=== PATIENT | female | born 1955 | race Caucasian/White ===

== ENCOUNTER 2016-09-02 20:40 | Emergency (ER) | payer OTHER ==
[~2016-09-02] VITALS: Ht 157.5 cm; Wt 72.3 kg
[~2016-09-02 20:40] MED LIST: HYSSR375
[2016-09-02 20:42] VITALS: TEMP 36.8; Ht 157.5 cm; Wt 72.3 kg
--- NOTE | 2016-09-02 21:37 | DIAGNOSTIC IMAGING REPORT ---
CHEST 2 VIEWS ROUTINE CLINICAL HISTORY: eval for pnea chest pain. Dyspnea. COMPARISON STUDY: No previous studies for comparison. FINDINGS: The bones soft tissues and hemidiaphragms are normal. The cardiomediastinal silhouette is normal. The lungs are clear. The pulmonary vasculature is normal. IMPRESSION: Negative chest. Electronically signed by: Hal Wolf M.D. 09/02/2016 9:35 PM Dictated Date/Time: 09/02/2016 9:35 PM
[2016-09-02 21:50] VITALS: BP 121/81; PULSE 61; O2SAT 100
--- NOTE | 2016-09-02 22:10 | EMERGENCY ROOM VISIT NOTE ---
History Report prepared by Nayeli: Babs Byrd Under the Supervision of: Dr. Jose Francisco Ruiz M.D. First contact with patient: 20:55 Chief Complaint: ILLNESS Stated Complaint: BODY ACHES, COUGH, SORETHROAT, STUFFED NOSE History of Present Illness The patient is a 60 year old female who presents to the Emergency Room with complaints of persistent flu-like symptoms that began 3 days ago. She notes that she has had body aches, a sore throat, nonproductive cough, and swollen glands. Her sore throat is worse with coughing. 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 She does not think she has had a fever. Denies chest pain, shortness of breath, or other complaints. Source of History: patient Onset: 3 days ago Position: other (global) Quality: other (flu-like symptoms) Timing: other (persistent) Associated Symptoms: + cough (nonproductive), + lymphadenopathy, + sorethroat, No SOB, No chest pain Note: Other symptoms: body aches Review of Systems See HPI for pertinent positives & negatives. A total of 10 systems reviewed and were otherwise negative. Past Medical & Surgical Medical Problems: (1) No Known Active Medical Problems Family History Diabetes mellitus Heart disease Hypertension Social History Smoking Status: Current Every Day Smoker Alcohol Use: occasionally Marital Status: Housing Status: lives with significant other Occupation Status: employed Current/Historical Medications Miscellaneous Medications Hyoscyamine Sulfate (Levbid *) Allergies Coded Allergies: Penicillins (Verified Allergy, Unknown, 09/09/09) Physical Exam Vital Signs Date Time Temp Pulse Resp B/P Pulse Ox O2 Delivery O2 Flow Rate FiO2 09/02/16 20:42 36.8 59 18 126/80 98 Room Air Physical Exam Constitutional: Vital signs reviewed. Eyes: Pupils are equal round reactive to light. Conjunctiva are noninjected. ENT: Pharynx is clear without erythema or exudate. Mucous membranes are moist. Neck supple without meningeal signs. Respiratory: Clear to auscultation bilaterally. Breath sounds are equal bilaterally. Cardiovascular: Regular rate and rhythm. No rubs or gallops. GI: Soft, nondistended and nontender. Bowel sounds are present. Musculoskeletal: No peripheral edema. Integumentary: No cyanosis. Neurological: The patient is awake and alert. No focal deficits. Psychiatric: Normal affect. Medical Decision & Procedures ER Provider Diagnostic Interpretation: X-ray results as stated below per interpretation by me and the radiologist: CHEST 2 VIEWS ROUTINE CLINICAL HISTORY: eval for pnea chest pain. Dyspnea. COMPARISON STUDY: No previous studies for comparison. FINDINGS: The bones soft tissues and hemidiaphragms are normal. The cardiomediastinal silhouette is normal. The lungs are clear. The pulmonary vasculature is normal. IMPRESSION: Negative chest. Electronically signed by: Hal Wolf M.D. 09/02/2016 9:35 PM Dictated Date/Time: 09/02/2016 9:35 PM Laboratory Results Test 09/02/16 21:04 Influenza Type A Antigen POS for Influ A (NEG) Influenza Type B Antigen Neg for Influ B (NEG) Laboratory results as reviewed by me. ED Course 2056: The patient was evaluated in room C3. A complete history and physical exam was performed. 2139: I reassessed the patient and told her about her results. She declines Tamiflu. The patient will be discharged home. 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 Differential diagnosis includes bronchitis, viral syndrome, pneumonia, influenza. I did perform a limited focused review of portions of the patient's old chart on the electronic medical record. The patient has had no recent pertinent visits to this hospital. I did evaluate the patient as noted above. I did order and personally review the patient's chest x-ray as described above. There is no evidence of pneumonia. A rapid flu test was obtained and was positive for influenza A. The patient has fairly well-appearing and does not require hospitalization. We discussed Tamiflu when she declined it. 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 She was discharged in good condition. Impression Primary Impression: Influenza A Scribe Attestation The scribe's documentation has been prepared under my direct and personally reviewed by me in its entirety. I confirm that the note above accurately reflects all work, treatment, procedures, and medical decision making performed by me. Departure Information Dispostion Home / Self-Care Referrals Edwige Shah M.D. (PCP) Patient Instructions ED Flu, My [facility] Additional Instructions You have been examined and treated today on an emergency basis only. This is not a substitute for, or an effort to provide, complete comprehensive medical care. It is impossible to recognize and treat all injuries or illnesses in a single emergency department visit. It is therefore important that you follow up closely with your physician. Call as soon as possible for an appointment. Return for worsening symptoms or if you develop severe headache, chest pain, shortness of breath or any other concerning symptoms.
== END 2016-09-02 22:18 | disposition home or self-care (01) ==
LOC: C.EDB 20:40 → C.EDC 22:18
DX: J09.X2 Influenza due to identified novel influenza A virus with other respiratory manifestations (principal); Z79.899 Other long term (current) drug therapy; Z88.0 Allergy status to penicillin; Z82.49 Family history of ischemic heart disease and other diseases of the circulatory system; Z83.3 Family history of diabetes mellitus; F17.200 Nicotine dependence, unspecified, uncomplicated

== ENCOUNTER → 2017-01-17 | Outpatient (CLI) | payer OTHER ==
--- NOTE | 2017-01-17 12:06 | DIAGNOSTIC IMAGING REPORT ---
CERVICAL SPINE 9 VIEWS HISTORY: Pain NECK PAIN COMPARISON: None. FINDINGS: The cervical spine is visualized from C1 through the superior endplate of T1. There is no fracture. Minimal grade 1 anterolisthesis C4 on C5. This appears to be secondary to degenerative changes of posterior horns. Estimated anterolisthesis is 2.2 mm. Moderate degenerative disc changes throughout. Degenerative change posterior elements. Significant degenerative changes C1-C2 complex. IMPRESSION: Considerable degenerative change. Muscle spasm. No acute bony abnormality Electronically signed by: Hal Wolf M.D. 01/17/2017 12:05 PM Dictated Date/Time: 01/17/2017 12:02 PM
[2017-01-18 15:48] LABS: ANTI-SS-A <1.0 NEG AI (<1.0 NEG); ANTI-SS-B <1.0 NEG AI (<1.0 NEG); Sm Antibody <1.0 NEG AI (<1.0 NEG)
== END | disposition home or self-care (01) ==
LOC: C.RAD 10:21
PROVIDERS: ATTEND Internal Medicine
DX: M50.30 Other cervical disc degeneration, unspecified cervical region (principal); I73.00 Raynaud's syndrome without gangrene; M62.830 Muscle spasm of back

== ENCOUNTER → 2017-08-30 | Outpatient (CLI) | payer OTHER ==
[2017-08-30 13:12] LABS: ALBUMIN 3.5 gm/dl (3.4-5.0); ALT/SGPT 36 U/L (12-78); AST/SGOT 19 U/L (15-37); BLOOD UREA NITROGEN 16 mg/dl (7-18); CALCIUM 8.6 mg/dl (8.5-10.1); CARBON DIOXIDE 28 mmol/L (21-32); CREATININE 0.61 mg/dl (0.60-1.20); GLUCOSE,FASTING 90 mg/dl (70-99); POTASSIUM 3.7 mmol/L (3.5-5.1); SODIUM 137 mmol/L (136-145)
[2017-08-30 13:18] LABS: ALKALINE PHOSPHATASE 68 U/L (45-117); CHOLESTEROL 222 mg/dl (0-200); LDL CHOLESTEROL CALCULATED 130 mg/dl; TOTAL PROTEIN 6.9 gm/dl (6.4-8.2)
== END | disposition home or self-care (01) ==
LOC: C.LABPBG 10:27
PROVIDERS: ATTEND Internal Medicine
DX: Z13.220 Encounter for screening for lipoid disorders (principal); Z79.899 Other long term (current) drug therapy

== ENCOUNTER → 2018-03-14 | Outpatient (CLI) | payer OTHER ==
--- NOTE | 2018-03-14 10:13 | DIAGNOSTIC IMAGING REPORT ---
ULTRASOUND EXAM AAA SCREEN CLINICAL HISTORY: PULSATILE ABDOMINAL MASS mass TECHNIQUE: Ultrasound COMPARISON STUDY: None FINDINGS: Normal caliber abdominal aorta. No evidence for aneurysm. IMPRESSION: Normal study. No evidence for aneurysm. The above report was generated using voice recognition software. It may contain grammatical, syntax or spelling errors. Electronically signed by: Hal Wolf M.D. 03/14/2018 10:12 AM Dictated Date/Time: 03/14/2018 10:11 AM
== END | disposition home or self-care (01) ==
LOC: C.ULTR 09:18
PROVIDERS: ATTEND Internal Medicine
DX: Z13.220 Encounter for screening for lipoid disorders (principal); Z79.899 Other long term (current) drug therapy; R19.00 Intra-abdominal and pelvic swelling, mass and lump, unspecified site